=== PATIENT | male | born 1995 | race Caucasian/White ===

== ENCOUNTER 2019-01-05 08:00 | Outpatient (CLI) | payer OTHER ==
[2019-01-05 18:53] LABS: BASOPHILS % (AUTO) 0.5 %; EOSINOPHILS # (AUTO) 0.1 10^3/uL (0.0-0.7); EOSINOPHILS % (AUTO) 0.9 %; HGB - HEMOGLOBIN 14.9 g/dL (14.0-18.0); LYMPHOCYTES # (AUTO) 1.6 10^3/uL (1.5-3.5); LYMPHOCYTES % (AUTO) 27.7 %; MEAN CORPUSCULAR HEMOGLOBIN 27.7 pg (27.0-31.0); MEAN CORPUSCULAR HGB CONC 34.6 g/dL (32.0-36.0); MEAN CORPUSCULAR VOLUME 80.1 fL (80.0-94.0); MEAN PLATELET VOLUME 10.4 fL (7.4-11.4); MONOCYTES # (AUTO) 0.4 10^3/uL (0.0-1.0); NEUTROPHILS # (AUTO) 3.8 10^3/uL (1.5-6.6); NEUTROPHILS % (AUTO) 63.9 %; PLT - PLATELET COUNT 136 10^3/uL (130-450); RED BLOOD COUNT 5.37 10^6/uL (4.70-6.10); WHITE BLOOD COUNT 5.9 x10^3/uL (4.8-10.8)
[2019-01-05 19:10] LABS: PLATELET ESTIMATE, MANUAL NORMAL (130-450,000) (NORMAL); PLATELET MORPHOLOGY NORMAL APPEARANCE (NORMAL); RBC MORPHOLOGY (MULTIPLE) NORMAL APPEARANCE (NORMAL)
[2019-01-05 19:24] LABS: ALBUMIN 4.7 g/dL (3.2-5.5); ALBUMIN/GLOBULIN RATIO 1.9 (1.0-2.2); ALKALINE PHOSPHATASE 61 IU/L (42-121); ALT ALANINE AMINOTRANSFERASE 20 IU/L (10-60); AST ASPARTATE AMINOTRANSFERASE 23 IU/L (10-42); BILIRUBIN,TOTAL 1.7 mg/dL (0.2-1.0); BUN - BLOOD UREA NITROGEN 18 mg/dL (6-20); CALCIUM 9.5 mg/dL (8.5-10.3); CARBON DIOXIDE - CO2 30 mmol/L (21-32); CHLORIDE 101 mmol/L (101-111); CHOL/HDL RATIO 3.8 (<5.0); CHOLESTEROL 147 mg/dL; CREATININE 0.8 mg/dL (0.6-1.2); GFR - MDRD 118 (>89); GLUCOSE 87 mg/dL (70-100); HDL CHOLESTEROL 39 mg/dL; LDL CHOLESTEROL,CALCULATED 95 mg/dL; LDL/HDL RATIO 2.4 (<3.6); SODIUM 137 mmol/L (135-145); TOTAL PROTEIN 7.2 g/dL (6.7-8.2); VLDL CHOLESTEROL 13 mg/dL
== END 2019-01-05 23:59 | disposition home or self-care (01) ==
LOC: LAB.WCP 08:00
PROVIDERS: ATTEND Family Medicine
DX: Z00.00 Encounter for general adult medical examination without abnormal findings (principal); E29.1 Testicular hypofunction
CPT/HCPCS: 36415; 80050; 80061; 81599; 82306; 83721; 84402; 84403

== ENCOUNTER 2019-11-19 16:32 | Outpatient (CLI) | payer OTHER ==
--- NOTE | 2019-11-20 14:27 | XRAY Report ---
Reason: NECK BACK PAIN Procedure Date: 11/19/2019 Accession Number: [id number] / [id number] Procedure: XR - Thoracic Spine 3 View CPT Code: Final Report FULL RESULT: EXAM: THORACIC SPINE RADIOGRAPHY EXAM DATE: 11/19/2019 05:10 PM. CLINICAL HISTORY: NECK. BACK PAIN. COMPARISON: Mild anterior wedging of a midthoracic vertebral body.. TECHNIQUE: 3 views. 4 films. FINDINGS: Alignment: Normal. No spondylolisthesis or scoliosis. Bones: Mild mid to lower thoracic vertebral body wedging, at T8 or T9 level, from prior compression fracture. Disks: Normal. Disk heights are maintained. Soft Tissues: Normal. The visualized lungs and cardiomediastinal silhouette are normal. IMPRESSION: 1. Known lower thoracic vertebral body fracture. 2. No acute abnormality demonstrated. [facility]
== END 2019-11-19 16:33 | disposition home or self-care (01) ==
LOC: DI 16:32
PROVIDERS: ATTEND Family Medicine
DX: M48.54XD Collapsed vertebra, not elsewhere classified, thoracic region, subsequent encounter for fracture with routine healing (principal)
CPT/HCPCS: 72072

== ENCOUNTER 2020-05-06 17:00 | Emergency (ER) | payer OTHER ==
[2020-05-06 17:09] VITALS: BP 125/66
--- NOTE | 2020-05-06 17:51 | XRAY Report ---
PROCEDURE: Foot 3 View LT INDICATIONS: Left foot pain and injury TECHNIQUE: 3 views of the foot were acquired. COMPARISON: None FINDINGS: Bones: Nondisplaced fracture of the left fifth proximal phalanx traversing the bone obliquely. Soft tissues: Mild soft tissue swelling about the left fifth proximal phalanx. No tibiotalar joint e ffusion. Achilles tendon appears normal. IMPRESSION: Nondisplaced oblique left fifth proximal phalanx fracture. Mild associated soft tissue swelling. Reviewed by: Francisco Culp MD on 05/06/2020 5:50 PM PDT Approved by: Francisco Culp MD on 05/06/2020 5:50 PM PDT Station ID: [id number]
--- NOTE | 2020-05-06 18:32 | ED Physician Documentation ---
PD HPI LOWER EXT INJURY - Stated complaint Stated Complaint: LT TOE INJURY - Chief complaint Chief Complaint: Trauma Ext - History obtained from History obtained from: Patient - History of Present Illness PD HPI LOW EXT INJURY LOCATION: Left, Toe Type of injury: Blunt / blow Where injury occurred: Home - Additional information Additional information: 24-year-old male presents to the emergency department with left small toe pain after accidentally stubbing it on the corner of a couch this afternoon. He has some bruising surrounding the small toe. He has a normal gait. No history of previous injury Review of Systems Constitutional: denies: Fever, Chills Skin: denies: Rash, Lesions Musculoskeletal: reports: Joint pain Neurologic: denies: Generalized weakness, Focal weakness PD PAST MEDICAL HISTORY - Past Medical History Past Medical History: No Musculoskeletal: Osteopenia, Chronic back pain - Past Surgical History Past Surgical History: No - Present Medications Home Medications: Ambulatory Orders Medication Instructions Recorded Confirmed Ibuprofen [Motrin] 800 mg PO Q8H PRN #30 tablet 05/23/16 - Allergies Allergies/Adverse Reactions: Allergies Allergy/AdvReac Type Severity Reaction Status Date / Time No Known Drug Allergies Allergy Verified 05/06/20 17:05 - Social History Does the pt smoke?: No Smoking Status: Never smoker Does the pt drink ETOH?: No Does the pt have substance abuse?: No - Immunizations Immunizations are current?: Yes PD ED PE NORMAL - General General: Alert and oriented X 3, No acute distress, Well developed/nourished - Extremities Extremities: No deformity. No: No tenderness to palpate (Generalized bruising of the left small toe. Tenderness at the metatarsal phalanx joint. Normal flexion extension of the foot and ankle in all planes. 2+ DP pulse) Results - Vitals Vitals: Vital Signs - 24 hr 05/06/20 17:05 Temperature 37.2 C Heart Rate 75 Respiratory 16 Rate Blood Pressure 125/66 O2 Saturation 99 Oxygen O2 Source Room air - Rads (name of study) left foot Radiology: Final report received (Nondisplaced Oblique left fifth proximal phalanx fracture. Mild associated soft tissue swelling) PD MEDICAL DECISION MAKING - ED course Complexity details: reviewed results, d/w patient ED course: 24-year-old male here with acute left small toe pain after stubbing his toe on a couch at home this afternoon. X-ray shows a nondisplaced oblique left fifth proximal phalanx fracture. Findings discussed with patient. Will jonel tape toe and place in a postop shoe. Patient declined follow-up to orthopedics. Routine care and management of this injury discussed. Departure - Departure Disposition: 01 Home, Self Care Clinical Impression: Toe fracture, left Qualifiers: Encounter type: initial encounter Toe: lesser toe Fracture type: closed Phalanx: proximal Fracture alignment: nondisplaced Qualified Code(s): S92.515A - Nondisplaced fracture of proximal phalanx of left lesser toe(s), initial encounter for closed fracture Condition: Stable Instructions: ED Fx Toe Closed Comments: The x-ray shows a nondisplaced oblique left fifth proximal phalanx fracture. Please jonel tape your small toe and your ring toe together. These types of fractures typically take 4 to 6 weeks to heal. Wear the postop shoe provided. You can take Tylenol or ibuprofen [id number] for pain. You may ice the toe over the next 2 to 3 days to help with pain.
== END 2020-05-06 18:46 | disposition home or self-care (01) ==
LOC: ED 17:00
DX: S92.515A Nondisplaced fracture of proximal phalanx of left lesser toe(s), initial encounter for closed fracture (principal); S90.122A Contusion of left lesser toe(s) without damage to nail, initial encounter; W22.03XA Walked into furniture, initial encounter; Y92.009 Unspecified place in unspecified non-institutional (private) residence as the place of occurrence of the external cause
CPT/HCPCS: 99282; 99283

== ENCOUNTER 2020-05-20 07:33 | Outpatient (CLI) | payer OTHER ==
--- NOTE | 2020-05-20 16:35 | XRAY Report ---
Reason: LEFT PROXIMAL PHALANX FRACTURE Procedure Date: 05/20/2020 Accession Number: [id number] / [id number] Procedure: WCP - Foot 3 View LT CPT Code: Final Report FULL RESULT: PROCEDURE: Foot 3 View LT INDICATIONS: LEFT PROXIMAL PHALANX FRACTURE TECHNIQUE: 3 views of the foot were acquired. COMPARISON: 05/06/2020 FINDINGS: Previously described lucency traversing the proximal fifth phalanx is essentially completely unchanged. A fracture would be expected to demonstrate osteolytic resorption along the fracture margin over the interval since 05/06/2020. The lack of these findings suggests that the lucency is more consistent with a normal nutrient foramen traversing the bone. There is no evidence of an acute fracture. Soft tissue swelling associated with the fifth metatarsophalangeal joint has decreased. IMPRESSION: No evidence of acute or subacute fracture. Previously described osseous lucency in the proximal fifth phalanx is favored to represent a nutrient foramen. Reviewed by: Francisco Culp MD on 05/20/2020 4:34 PM PDT Approved by: Francisco Culp MD on 05/20/2020 4:34 PM PDT Station ID: [id number]
== END 2020-05-20 23:59 | disposition home or self-care (01) ==
LOC: DI.WCP 07:33
PROVIDERS: ATTEND Family Medicine
DX: Z03.89 Encounter for observation for other suspected diseases and conditions ruled out (principal)

== ENCOUNTER 2021-01-12 08:00 | Outpatient (CLI) | payer OTHER | END 2021-01-12 23:59 | disposition home or self-care (01) | LOC: LAB.N 08:00 | PROVIDERS: ATTEND Family Medicine | DX: J06.9 Acute upper respiratory infection, unspecified (principal) ==

== ENCOUNTER → 2021-03-30 | Outpatient (CLI) | payer OTHER ==
--- NOTE | 2021-03-30 13:37 | XRAY Report ---
PROCEDURE: Toe(s) LT INDICATIONS: L MIDDLE TOE PX TECHNIQUE: 3 views of the there toe(s) acquired. COMPARISON: X-ray foot 05/06/2020 FINDINGS: Bones: There is a mildly displaced fracture at the base of the distal third phalanx extending to the articular surface. No suspicious bony lesions. Soft tissues: No suspicious soft tissue densities. IMPRESSION: Distal third phalanx intra-articular fracture. Reviewed by: Vero Ying MD on 03/30/2021 1:36 PM PDT Approved by: Vero Ying MD on 03/30/2021 1:36 PM PDT Station ID: [id number]
== END ==
LOC: DI.N 08:50
PROVIDERS: ATTEND Family Medicine
DX: M79.675 Pain in left toe(s) (principal); S92.532A Displaced fracture of distal phalanx of left lesser toe(s), initial encounter for closed fracture

== ENCOUNTER 2021-04-10 11:39 | Outpatient (CLI) | payer OTHER ==
--- NOTE | 2021-04-10 13:31 | XRAY Report ---
PROCEDURE: Lumbar Spine Complete INDICATIONS: BACK PAIN, LUMBAR TECHNIQUE: 4 views of the lumbar spine were acquired. COMPARISON: None. FINDINGS: Bones: 5 [id number] vertebrae are present. There is normal bony alignment. No vertebral body compression fractures. No suspicious bony lesions. Soft tissues: Overlying bowel gas pattern is normal. No suspicious soft tissue calcifications. Oblique views shows no gross pars defects. IMPRESSION: Unremarkable radiographic examination of lumbar spine. No gross pars defect. Reviewed by: Hermilo Morton MD on 04/10/2021 1:29 PM PDT Approved by: Hermilo Morton MD on 04/10/2021 1:29 PM PDT Station ID: [id number]
--- NOTE | 2021-04-10 13:32 | XRAY Report ---
PROCEDURE: Cervical Spine w/Flex/Ext INDICATIONS: NECK PAIN, CRONIC TECHNIQUE: 7 views of the cervical spine were acquired. COMPARISON: None. FINDINGS: Bones: No fractures or dislocations to the C7-T1 level. No suspicious bony lesions. There is chiqui l range of motion between flexion and extension, with preserved normal bony alignment. Soft tissues: Prevertebral soft tissues are normal in thickness. Oblique views shows no significant bony foraminal stenosis. IMPRESSION: Unremarkable radiographic examination of cervical spine. Normal range of motion on later al flexion and extension views. Reviewed by: Hermilo Mortno MD on 04/10/2021 1:30 PM PDT Approved by: Hermilo Morton MD on 04/10/2021 1:30 PM PDT Station ID: [id number]
== END 2021-04-10 11:40 | disposition home or self-care (01) ==
LOC: DI.N 11:39
PROVIDERS: ATTEND Internal Medicine
DX: M54.2 Cervicalgia (principal); M54.5 Low back pain; M48.54XA Collapsed vertebra, not elsewhere classified, thoracic region, initial encounter for fracture; E55.9 Vitamin D deficiency, unspecified; M25.50 Pain in unspecified joint; Z13.220 Encounter for screening for lipoid disorders
CPT/HCPCS: 36415; 80053; 80061; 81599; 82306; 82784; 83721; 83970; 84443; 85025; 85651; 86038; 86140; 86200; 86430

== ENCOUNTER 2021-04-10 11:45 | Outpatient (CLI) | payer OTHER ==
[2021-04-10 18:07] LABS: BASOPHILS % (AUTO) 0.2 %; EOSINOPHILS # (AUTO) 0.1 10^3/uL (0.0-0.7); EOSINOPHILS % (AUTO) 1.1 %; HCT - HEMATOCRIT 46.2 % (42.0-52.0); HGB - HEMOGLOBIN 15.9 g/dL (14.0-18.0); LYMPHOCYTES # (AUTO) 1.6 10^3/uL (1.5-3.5); LYMPHOCYTES % (AUTO) 29.4 %; MEAN CORPUSCULAR HGB CONC 34.4 g/dL (32.0-36.0); MEAN CORPUSCULAR VOLUME 81.3 fL (80.0-94.0); MEAN PLATELET VOLUME 12.4 fL (7.4-11.4); MONOCYTES # (AUTO) 0.4 10^3/uL (0.0-1.0); MONOCYTES % (AUTO) 7.9 %; NEUTROPHILS # (AUTO) 3.3 10^3/uL (1.5-6.6); PLT - PLATELET COUNT 170 10^3/uL (130-450); RED BLOOD COUNT 5.68 10^6/uL (4.70-6.10); RED CELL DISTRIBUTION WIDTH 13.7 % (12.0-15.0); WHITE BLOOD COUNT 5.3 x10^3/uL (4.8-10.8)
[2021-04-10 18:16] LABS: ALBUMIN 4.7 g/dL (3.2-5.5); ALBUMIN/GLOBULIN RATIO 1.7 (1.0-2.2); ALKALINE PHOSPHATASE 60 IU/L (42-121); ALT ALANINE AMINOTRANSFERASE 22 IU/L (10-60); AST ASPARTATE AMINOTRANSFERASE 20 IU/L (10-42); BILIRUBIN,TOTAL 1.1 mg/dL (0.2-1.0); BUN - BLOOD UREA NITROGEN 17 mg/dL (6-20); CALCIUM 9.2 mg/dL (8.5-10.3); CARBON DIOXIDE - CO2 27 mmol/L (21-32); CHLORIDE 99 mmol/L (101-111); CHOL/HDL RATIO 5.3 (<5.0); CHOLESTEROL 164 mg/dL; CREATININE 0.8 mg/dL (0.6-1.2); GFR - MDRD 116 (>89); GLUCOSE 87 mg/dL (70-100); HDL CHOLESTEROL 31 mg/dL; LDL CHOLESTEROL,CALCULATED 115 mg/dL; LDL/HDL RATIO 3.7 (<3.6); POTASSIUM 3.9 mmol/L (3.5-5.0); SODIUM 133 mmol/L (135-145); TOTAL PROTEIN 7.5 g/dL (6.7-8.2); TRIGLYCERIDES 90 mg/dL; VLDL CHOLESTEROL 18 mg/dL
[2021-04-10 18:29] LABS: THYROID STIMULATING HORMONE 1.74 uIU/mL (0.34-5.60)
[2021-04-10 18:48] LABS: CRP - C-REACTIVE PROTEIN < 1.0 mg/dL (0-1.0)
[2021-04-10 18:53] LABS: RHEUMATOID FACTOR NEGATIVE (Negative)
[2021-04-14 07:37] LABS: ANA PATTERN Nuclear, Speckled; ANA SCREEN POSITIVE (NEGATIVE); ANA TITER 1:40 titer
[2021-04-14 10:17] LABS: IMMUNOGLOBULIN A 151 mg/dL (47-310); IMMUNOGLOBULIN G 1071 mg/dL (600-1640); IMMUNOGLOBULIN M 58 mg/dL (50-300)
== END 2021-04-10 11:46 | disposition home or self-care (01) ==
LOC: LAB.N 11:45
PROVIDERS: ATTEND Internal Medicine
DX: M48.54XA Collapsed vertebra, not elsewhere classified, thoracic region, initial encounter for fracture (principal); Z13.220 Encounter for screening for lipoid disorders; E55.9 Vitamin D deficiency, unspecified; M25.50 Pain in unspecified joint
CPT/HCPCS: 36415; 80053; 80061; 81599; 82306; 82784; 83721; 83970; 84443; 85025; 85651; 86038; 86140; 86200; 86430